=== PATIENT | female | born 1995 | race Caucasian/White ===

== ENCOUNTER 2017-03-17 04:23 | Observation (INO) | payer OTHER ==
[~2017-03-17] VITALS: Ht 167.6 cm; Wt 58.1 kg
[2017-03-17] MEDS ORDERED: HYDR-757 PO (04:34)
[2017-03-17 04:46] LABS: MEAN PLATELET VOLUME 10.2 FL (7.4-10.4); RED BLOOD COUNT 5.05 10^6/uL (4.35-5.85); RED CELL DISTRIBUTION WIDTH 13.9 % (10.0-14.5); WHITE BLOOD COUNT 10.6 10^3/uL (4.3-11.0)
--- NOTE | 2017-03-17 05:20 | Progress Note-Standard ---
Standard Progress Note Progress Notes/Assess & Plan Date Seen by Provider: Mar 17, 2017 Time Seen by Provider: 04:30 Progress/Assessment & Plan ENT-Steve HIstory/Physical HPI Patient is a 21 year old female who had a t/a on 03/07. Did well up until around midnight when she had the onset of bleeding. Two episodes lasting about 15 minutes each Presented t othe ER for evaluation PMHX: unremarkable ALL-NKDA Meds: Hypdrocodone Exam pulse-79 no active bleeding OP-clear with no clot and no fresh blood-scabs gone HGB-13.1- Preop HGB-13 IMP: MIld Post-op Tonsil bleed Rec: 1. Patient to be admitted for observation. If she has further bleeding then will need EUA with repair fo the bleeding 2. If no bleedign over the next twelve hours then will discharge back home either later today or wood AM 3. Final Diagnosis POst-op tonsil bleed-day 10-mild SUSANNE ATKINS MD Mar 17, 2017 5:19 am
[2017-03-17 05:25] VITALS: BP 132/90
[2017-03-17] MEDS ORDERED: HYDROcodone/APAP 7.5MG-325 MG/15 ML (LORTAB) UDC PO PRN (05:45)
[2017-03-17] MEDS ORDERED: ACETAMINOPHEN 500 MG TAB (TYLENOL) PO PRN (05:45)
[2017-03-17 08:00] VITALS: BP 127/83
[2017-03-17 12:00] VITALS: BP 119/80
--- NOTE | 2017-03-17 13:27 | Progress Note-Standard ---
Standard Progress Note Progress Notes/Assess & Plan Time Seen by Provider: 13:30 Progress/Assessment & Plan Silvia HIstory/Physical HPI Patient is a 21 year old female who had a t/a on 03/07. Did well up until around midnight when she had the onset of bleeding. Two episodes lasting about 15 minutes each Presented t othe ER for evaluation PMHX: unremarkable ALL-NKDA Meds: Hypdrocodone Exam pulse-79 no active bleeding OP-clear with no clot and no fresh blood-scabs gone HGB-13.1- Preop HGB-13 IMP: MIld Post-op Tonsil bleed Rec: 1. Patient to be admitted for observation. If she has further bleeding then will need EUA with repair fo the bleeding 2. If no bleedign over the next twelve hours then will discharge back home either later today or wood AM Silvia-03/17-0 No sign bleeding joey diet OP-dry-no new or old blood seen will discharge home aroung 3pm with instructions to return if she has further bleeding keep f/u apt tyleonol as needed for pain Final Diagnosis post-op tonsil bleed-SUSANNE Mendez MD Mar 17, 2017 1:27 pm
[2017-03-17 15:10] VITALS: BP 104/69
[2017-03-17 16:28] VITALS: BP 104/69
[2017-03-17] MEDS ORDERED: morphine INJ 10 MG/ML 1ML (SYR OR VIAL) ONE (20:21)
[2017-03-18] MEDS ORDERED: HYDR15SO8 PO (12:26)
== END 2017-03-17 14:50 | disposition home or self-care (01) ==
LOC: ER 04:31 → 4TH 05:05 → UNDOADMOB 05:05 → 4TH 05:25 → UNDODISOB 15:35
PROVIDERS: ADMIT Otolaryngology Otolaryngology/Facial Plastic Surgery; ATTEND Otolaryngology Otolaryngology/Facial Plastic Surgery
DX: J95.830 Postprocedural hemorrhage of a respiratory system organ or structure following a respiratory system procedure (principal)
CPT/HCPCS: 36415; 84703; 85027; G0378

== ENCOUNTER 2017-03-17 19:41 | Observation (INO) | payer OTHER ==
[~2017-03-17] VITALS: Ht 167.6 cm; Wt 60.1 kg
[~2017-03-17 19:41] MED LIST: HYDR-757 PO
[2017-03-17] MEDS ORDERED: MIDAZOLAM 2 MG/2 ML (VERSED) VIAL ONE (19:50)
[2017-03-17] MEDS ORDERED: SUCCINYLCHOLINE INJ 100 MG/5 ML SYR ONE (19:50)
[2017-03-17] MEDS ORDERED: fentaNYL INJECTION 100 MCG/2 ML AMP ONE (19:50)
[2017-03-17] MEDS ORDERED: proPOfol 200 MG/20 ML (DIPRIVAN) VIAL IV ONE (19:50)
--- NOTE | 2017-03-17 19:58 | Progress Note-Pre Operative ---
Pre-Operative Progress Note H&P Reviewed The H&P was reviewed, patient examined and no changes noted. Date Seen by Provider: Mar 17, 2017 Time Seen by Provider: 19:50 Date H&P Reviewed: Mar 17, 2017 Time H&P Reviewed: 19:50 Pre-Operative Diagnosis: Post-op Tonsil Bleed-Day 10 SUSANNE ATKINS MD Mar 17, 2017 7:58 pm
[2017-03-17 20:04] LABS: MEAN PLATELET VOLUME 10.4 FL (7.4-10.4); RED BLOOD COUNT 4.95 10^6/uL (4.35-5.85); WHITE BLOOD COUNT 10.9 10^3/uL (4.3-11.0)
[2017-03-17] MEDS: LACTATED RINGERS 1,000 ML IV PRN (20:05)
[2017-03-17] MEDS ORDERED: SEVOFLURANE (ULTANE) 15 ML INHAL SOLN ONE (20:29)
[2017-03-17] MEDS ORDERED: DEXAMETHASONE PF 10 MG/ML (DECADRON) VIAL ONE (20:46)
[2017-03-17] MEDS ORDERED: ONDANSETRON 4 MG/2 ML (SDV) Z0FRAN ONE (20:46)
--- NOTE | 2017-03-17 20:49 | Progress Note-Post Operative ---
Post-Operative Progess Note Surgeon (s)/[employer]person [employer] (s) Surgeon SUSANNE ATKINS MD [employer] n/a Pre-Operative Diagnosis Post-op Tonsil Bleed-Day 10 Post-Operative Diagnosis same Post-Op Procedure Note Date of Procedure: Mar 17, 2017 Name of Procedure Performed: t/a Description & Findings Description and Findings: n/a Anesthesia Type get Estimated Blood Loss 40cc Packing none. Specimen(s) collected/removed bleeding spot cauterized in left tonsillar fossa SUSANNE ATKINS MD Mar 17, 2017 8:49 pm
[2017-03-17] MEDS ORDERED: APAP 325 MG/10.15 ML LIQ (TYLENOL) UDC PO PRN (21:00)
[2017-03-17] MEDS ORDERED: morphine INJ 10 MG/ML 1ML (SYR OR VIAL) IVP PRN (21:00)
[2017-03-17] MEDS ORDERED: ONDANSETRON 4 MG/2 ML (SDV) Z0FRAN IVP PRN (21:00)
[2017-03-17] MEDS ORDERED: LACTATED RINGERS 1,000 ML IV ONE (23:59)
[2017-03-18] MEDS ORDERED: HYDROcodone/APAP 7.5MG-325 MG/15 ML (LORTAB) UDC ONE
[2017-03-18] MEDS: HYDROcodone/APAP 7.5MG-325 MG/15 ML (LORTAB) UDC PO PRN ×2 (00:07→09:21)
[2017-03-18] MEDS: LACTATED RINGERS 1,000 ML IV PRN (00:07)
[2017-03-18] MEDS ORDERED: CATHETER FLUSH 10 ML SYR IV PRN (00:15)
[2017-03-18 04:58] VITALS: BP 105/58
[2017-03-18] MEDS ORDERED: CATHETER FLUSH 10 ML SYR IV SCH (06:00)
--- NOTE | 2017-03-18 07:15 | Progress Note-Standard ---
Standard Progress Note Progress Notes/Assess & Plan Date Seen by Provider: Mar 18, 2017 Time Seen by Provider: 07:10 Progress/Assessment & Plan ENT-Ramakrishna doing well no bleeding since surgery taking liquids OP-dry-no new or old blood seen will observe until after lunch if no bleeding can then go home rtc-already scheduled discharge instructions given discharge precriptioin in her folder Final Diagnosis post-op tonsil bleed SUSANNE ATKINS MD Mar 18, 2017 7:15 am
[2017-03-18 08:30] VITALS: BP 115/71
[2017-03-18 12:00] VITALS: BP 113/73
[2017-03-18] MEDS ORDERED: HYDR15SO8 PO (12:26)
== END 2017-03-18 13:09 | disposition home or self-care (01) ==
LOC: EDUNIT# 19:41 → ER 19:43 → SDC 19:59 → 4TH 22:10
PROVIDERS: ADMIT Otolaryngology Otolaryngology/Facial Plastic Surgery; ATTEND Otolaryngology Otolaryngology/Facial Plastic Surgery
DX: J95.830 Postprocedural hemorrhage of a respiratory system organ or structure following a respiratory system procedure (principal)
CPT/HCPCS: 36415; 85027; 99285

== ENCOUNTER → 2021-05-30 | Outpatient (CLI) | payer BC, OTHER ==
[~2021-05-30] MED LIST changes: +HYDR-4226 PO; -HYDR-757 PO; +HYDR15SO8 PO
--- NOTE | 2021-05-30 18:23 | Diagnostic Imaging Report ---
INDICATION: Abdominal pain KUB at 4:01 PM There is a questionable calculus projecting over the upper pole of the right kidney. This could be material in the gastrointestinal tract, however. There is gaseous distention of the stomach. Bowel gas pattern is unremarkable. IMPRESSION: Gaseous distention of the stomach. Questionable renal calculus on the right. Dictated by: Dictated on workstation # [id number]
== END ==
LOC: RAD 15:20
PROVIDERS: ATTEND Nurse Practitioner Family
DX: R14.0 Abdominal distension (gaseous) (principal)
CPT/HCPCS: 74018